=== PATIENT | female | born 1990 | race Two or more races ===

== ENCOUNTER 2021-06-01 10:51 | Outpatient (REF) | payer MEDICAID, SELFPAY | END 2021-06-01 10:52 | disposition home or self-care (01) | LOC: HO.LNP 10:51 | PROVIDERS: PCP Internal Medicine; Referring Provider Family Medicine; Visit Provider Surgery | DX: L05.01 Pilonidal cyst with abscess (principal) | CPT/HCPCS: 10080; 87071; 87205; 99202 ==

== ENCOUNTER → 2021-06-22 09:58 | Outpatient (BNVA) | payer MEDICAID, SELFPAY | PROVIDERS: PCP Internal Medicine; Referring Provider Internal Medicine; Visit Provider Surgery | DX: L05.01 Pilonidal cyst with abscess (principal); Z88.8 Allergy status to other drugs, medicaments and biological substances; Z91.040 Latex allergy status; Z79.899 Other long term (current) drug therapy | CPT/HCPCS: 99212 ==

== ENCOUNTER 2023-06-18 16:24 | Outpatient (REF) | payer MEDICAID, SELFPAY ==
[2023-06-18 17:28] LABS: MANUAL DIFF FLAG NO
[2023-06-18 17:49] LABS: Basophils Percent Auto 0.4 % (0-2); Eosinophils Absolute Auto 0.2 X10*3/uL (0.0-0.4); Eosinophils Percent Auto 1.9 % (0-4); Hematocrit 40.2 % (37.0-47.0); Hemoglobin 13.5 g/dl (12.0-16.0); Imm Gran Abs Auto 0.03 X10*3/uL (0.00-0.03); Imm Gran Pct Auto 0.3 % (0.0-0.4); Lymphocytes Absolute Auto 2.7 X10*3/uL (1.2-4.9); Lymphocytes Percent Auto 27.6 % (20-40); Mean Corpuscular HGB Conc 33.6 g/dl (31.0-35.0); Mean Corpuscular Hemoglobin 29.6 pg (27.0-33.0); Mean Corpuscular Volume 88.2 fL (80.0-98.0); Mean Platelet Volume 10.1 fL (9.4-12.3); Monocytes Absolute Auto 0.5 X10*3/uL (0.1-1.2); Monocytes Percent Auto 5.1 % (2-11); Neutrophils Absolute Auto 6.3 x10*3/uL (2.0-8.3); Neutrophils Percent Auto 64.7 % (45-73); Platelet Count 344 X10*3/uL (160-400); Red Blood Count 4.56 X10*6/uL (4.20-5.50); Red Cell Distribution Width 13.8 % (11.0-16.0); White Blood Count 9.8 X10*3/uL (4.8-10.8)
[2023-06-18 18:17] LABS: Anion Gap 13 (12-20); Blood Urea Nitrogen 10 mg/dL (9-16); Calcium 9.4 mg/dL (8.4-10.2); Carbon Dioxide 29 mmol/L (22-29); Chloride 101 mmol/L (96-108); Estimated Glomerular Filt Rate > 60; Glucose Random 76 mg/dL (60-115); Potassium 3.8 mmol/L (3.3-5.1); Sodium 139 mmol/L (135-145)
[2023-06-18 18:25] LABS: TSH reflex Free T4 2.05 uIU/mL (0.32-4.0)
== END 2023-06-18 16:25 | disposition home or self-care (01) ==
LOC: HO.CHCLDS 16:24
PROVIDERS: Visit Provider Internal Medicine
DX: I10 Essential (primary) hypertension (principal); R00.2 Palpitations
CPT/HCPCS: 36415; 80048; 84443; 85025

== ENCOUNTER 2023-07-15 10:53 | Outpatient (REF) | payer MEDICAID, SELFPAY ==
--- NOTE | ~2023-07-15 | XR_ITS ---
EXAMINATION: XR SHOULDER, RIGHT CLINICAL INFORMATION: Pain. COMPARISON: None available. TECHNIQUE: AP external rotation, Grashey, scapular Y, and axillary views of the right shoulder. FINDINGS: Bony alignment and mineralization are normal. There are incompletely fused preacromial and mesoacromial accessory ossification centers. No fracture or dislocation is seen. Glenohumeral and acromioclavicular alignment is anatomic with normal joint space. No abnormal soft tissue calcifications. XR/XR shoulder RT min 2V IMPRESSION: There are unfused acromial accessory ossification centers. No acute fracture or dislocation is seen.
== END 2023-07-15 10:54 | disposition home or self-care (01) ==
LOC: HO.HOSX 10:53
PROVIDERS: PCP Internal Medicine; Visit Provider Orthopaedic Surgery
DX: M25.511 Pain in right shoulder (principal); M24.811 Other specific joint derangements of right shoulder, not elsewhere classified
CPT/HCPCS: 73030; 99202

== ENCOUNTER 2023-07-15 10:53 | Outpatient (AMB) | payer OTHER, MEDICAID, SELFPAY ==
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
== END 2023-07-15 11:57 | disposition home or self-care (01) ==
LOC: HO.HOS 10:53
PROVIDERS: PCP Internal Medicine; Visit Provider Orthopaedic Surgery
DX: M24.811 Other specific joint derangements of right shoulder, not elsewhere classified (principal)
CPT/HCPCS: 99203

== ENCOUNTER 2023-08-19 12:34 | Outpatient (REF) | payer OTHER, SELFPAY ==
--- NOTE | ~2023-08-19 | FL_ITS ---
RIGHT SHOULDER ARTHROGRAM INDICATIONS: Right shoulder pain. Intra-articular gadolinium injection is needed prior to MRI. PROCEDURE: Risks and benefits and possible complications were discussed with the patient and the consent form was signed. The patient was placed supine on the fluoroscopy table. The right shoulder was prepped and draped in normal sterile fashion. 1% buffered lidocaine was used for anesthesia. A 22-gauge spinal needle was used to access the shoulder joint. Intra-articular position of the needle within the shoulder joint was verified using 3 cc of Omnipaque 300. A total of 10 mL of gadolinium/saline (1:200) contrast mixture was then injected into the shoulder joint. The needle was then removed and a Band-Aid was applied to the injection site. The patient tolerated the procedure well and was sent to MRI. There were no immediate complications. FL/FL arthrogram shoulder RT IMPRESSION: Successful fluoroscopic guided intra-articular instillation of dilute gadolinium into the right shoulder joint. Patient will undergo subsequent right shoulder MRI. The procedure was performed by zayda Shea PA-C, and directly supervised by Dr. Padron.
--- NOTE | ~2023-08-19 | MR_ITS ---
EXAMINATION: MR SHOULDER WITH CONTRAST, RIGHT CLINICAL INFORMATION: Right shoulder pain COMPARISON: Radiographs 07/15/2023 TECHNIQUE: MRI of the shoulder was performed following the intra-articular administration of a dilute gadolinium-containing solution (arthrogram) on a high-field scanner. FINDINGS: ROTATOR CUFF: Intact. No muscle atrophy or fatty infiltration. BICEPS: Normal. CORACOACROMIAL ARCH: The undersurface of the acromion is curved with os acromiale with minimal degenerative change. The acromioclavicular joint is normal. LABRUM/CAPSULE: No evidence of a labral tear. GLENOHUMERAL JOINT/MARROW: No articular cartilage defect or loose body. Bone marrow signal is normal. MR/MR shoulder RT w con IMPRESSION: 1. No rotator cuff tear. 2. Os acromiale with minimal degenerative change.
[2023-08-19] MEDS: gadobutroL 2 ML VIAL IVPUSH (15:34)
== END 2023-08-19 12:35 | disposition home or self-care (01) ==
LOC: HO.XRAY 12:34
PROVIDERS: PCP Internal Medicine; Visit Provider Orthopaedic Surgery
DX: M24.811 Other specific joint derangements of right shoulder, not elsewhere classified (principal)
CPT/HCPCS: 23350; 73040; 73222; A9585

== ENCOUNTER → 2023-08-19 12:54 | Outpatient (BNV) | payer OTHER, SELFPAY | PROVIDERS: PCP Internal Medicine; Visit Provider Physician Assistant Surgical | DX: M24.811 Other specific joint derangements of right shoulder, not elsewhere classified (principal) | CPT/HCPCS: 23350; 73040 ==

== ENCOUNTER 2023-09-12 13:28 | Outpatient (AMB) | payer OTHER, SELFPAY ==
--- NOTE | 2023-09-12 13:30 | MHC.OFFVIS ---
Vital Signs 09/12/23 13:31 Height 5 ft 7 in Intake Visit Reasons: OV - Right Shoulder MRI Review Intake Note: Tammy is a 33 year old female who presents today for an MRI review of her right shoulder. MR/MR shoulder RT w con IMPRESSION: 1. No rotator cuff tear. 2. Os acromiale with minimal degenerative change Allergies ibuprofen [From MOTRIN] Allergy (Unknown, Unverified 09/12/23 13:32) ITCHING latex [LATEX] Allergy (Unknown, Unverified 09/12/23 13:32) ITCHING HPI HPI OV - Right Shoulder MRI Review: Details: Tammy is a 33 year old female who presents today for an MRI review of her right shoulder. She is doing physical therapy and states her shoulder is feeling better. She still is sore after therapy feels improvement. 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 Physical Exam Const General: cooperative, healthy appearing, no acute distress and well groomed Orientation/consciousness: oriented to person and oriented to place HEENT Head: Yes normal to inspection, Yes normocephalic and Yes atraumatic Eyes General: appearance normal, both eyes and all related structures Alignment and Position: alignment normal Conjunctivae: conjunctivae normal EOM: EOMs intact bilaterally Neck Neck: Yes normal visual inspection and Yes trachea midline Resp Other: No rerpiratory distress Effort & Inspection: normal respiratory effort and able to speak in complete sentences Cardio Other: Palpable radial pulse with no appreciable rythmic abnormalities GI Other: No abdominal distension Back/Spine/Pelvis Cervical Spine: normal cervical lordosis and cervical ROM normal Skin General skin exam: no rashes or lesions noted Neuro General: oriented to person, oriented to place and gait normal Extrem Other: Positive Cantrell and Neer 4/5 empty can Negative lift-off No AC joint tenderness Results Reviewed Results Reviewed: I personally reviewed the MR images. MR/MR shoulder RT w con IMPRESSION: 1. No rotator cuff tear. 2. Os acromiale with minimal degenerative change Assessment & Plan Assessment & Plan (1) Painful arc syndrome of right shoulder: Code(s): M75.101 - Unspecified rotator cuff tear or rupture of right shoulder, not specified as traumatic Category: Medical Plan: I recommend to knee should continue physical therapy. I reviewed her MRI and discussed treatment options. At this point no surgical intervention is warranted. Should she not fully improve she can return to see me. Coding Level of Care Code Est Pt Level 3 (81388) Diagnoses Painful arc syndrome of right shoulder M75.101
== END 2023-09-12 14:12 | disposition home or self-care (01) ==
PROVIDERS: PCP Internal Medicine; Visit Provider Orthopaedic Surgery
DX: M75.41 Impingement syndrome of right shoulder (principal)
CPT/HCPCS: 99213

== ENCOUNTER → 2023-09-12 13:28 | Outpatient (BNVA) | payer OTHER, SELFPAY | PROVIDERS: PCP Internal Medicine; Visit Provider Orthopaedic Surgery ==

== ENCOUNTER 2023-10-07 13:45 | Outpatient (AMB) | payer OTHER, SELFPAY ==
--- NOTE | 2023-10-07 14:05 | A.OFFVIS_ITS ---
Vital Signs 10/07/23 14:06 Height 5 ft 7 in Weight 220 lb BMI 34.5 Handedness Right Intake Visit Reasons: OV-Right Shoulder pain inj. Intake Note: Tammy is a 33 year old right hand dominant female who presents today for a follow up of her right shoulder. At her last visit we reviewed her MRI, it was recommended to continue physical therapy. Patient expresses she completed PT with no improvement. Pain radiates down to middle of her bicep. She is unable to lift objects and driving is difficult with her right arms. She is interested in receiving an injection today. Allergies ibuprofen [From MOTRIN] Allergy (Unknown, Verified 10/07/23 14:10) ITCHING latex [LATEX] Allergy (Unknown, Verified 10/07/23 14:10) ITCHING HPI HPI OV-Right Shoulder pain inj.: Details: Tammy is a 33 year old right hand dominant female who presents today for a follow up of her right shoulder. At her last visit we reviewed her MRI, it was recommended to continue physical therapy. Patient expresses she completed PT with no improvement. Pain radiates down to middle of her bicep. She is unable to lift objects and driving is difficult with her right arms. She is interested in receiving an injection today. Shje states she is continuing her exercise program and she has good days and bad days. 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 Physical Exam Vital Signs: BMI result Body Mass Index 34.5 Const General: cooperative, healthy appearing, no acute distress and well groomed Orientation/consciousness: oriented to person and oriented to place HEENT Head: Yes normal to inspection, Yes normocephalic and Yes atraumatic Eyes General: appearance normal, both eyes and all related structures Alignment and Position: alignment normal Conjunctivae: conjunctivae normal EOM: EOMs intact bilaterally Neck Neck: Yes normal visual inspection and Yes trachea midline Resp Other: No rerpiratory distress Effort & Inspection: normal respiratory effort and able to speak in complete sentences Cardio Other: Palpable radial pulse with no appreciable rythmic abnormalities GI Other: No abdominal distension Back/Spine/Pelvis Cervical Spine: normal cervical lordosis and cervical ROM normal Skin General skin exam: no rashes or lesions noted Neuro General: oriented to person, oriented to place and gait normal Extrem Other: Positive Cantrell and Neer 4+/5 empty can Negative lift-off No AC joint tenderness Office Procedures Joint Injection/Drain Joint Injection/Drain Details: Injected 1 mL of Decadron and 3 mL 1% lidocaine and 3 mL of 0.25% Marcaine. Site was prepped using aseptic technique. Patient tolerated the procedure well. Primary Site: right shoulder Approach Used: posterolateral Coding 90353 - Large joint Procedure code (CPT) selection complete Assessment & Plan Assessment & Plan (1) Painful arc syndrome of right shoulder: Code(s): M75.101 - Unspecified rotator cuff tear or rupture of right shoulder, not specified as traumatic Category: Medical Plan: I recommend Tammy should continue her HEP. I continue to recommend conservative management. I injected her shoulder today. She may f/u prn. Coding Level of Care Code Est Pt Level 3 (13577) Diagnoses Painful arc syndrome of right shoulder M75.101 CPT Codes Coding - 04436 Large joint: 50228 - Large joint ([id number])
[2023-10-07 14:06] VITALS: BMI 34.5
== END 2023-10-07 14:24 | disposition home or self-care (01) ==
PROVIDERS: PCP Internal Medicine; Visit Provider Orthopaedic Surgery
DX: M75.101 Unspecified rotator cuff tear or rupture of right shoulder, not specified as traumatic (principal); V49.50XA Passenger injured in collision with unspecified motor vehicles in traffic accident, initial encounter; Z04.3 Encounter for examination and observation following other accident
CPT/HCPCS: 20610; 99213

== ENCOUNTER → 2023-10-07 13:45 | Outpatient (BNVA) | payer OTHER, SELFPAY | PROVIDERS: PCP Internal Medicine; Visit Provider Orthopaedic Surgery | DX: M75.101 Unspecified rotator cuff tear or rupture of right shoulder, not specified as traumatic (principal); M25.511 Pain in right shoulder | CPT/HCPCS: 20610; J0665; J1100 ==

== ENCOUNTER 2023-11-22 09:32 | Outpatient (REF) | payer OTHER, SELFPAY ==
[2023-11-22 16:04] LABS: HIV AB/AG Nonreactive (Nonreactive); HIV Num 1 0.04 S/CO (0.00-0.99); ~HepC Num1 0.14 S/CO (0.00-0.79); ~Hepatitis C Antibody Nonreactive (Nonreactive)
== END 2023-11-22 09:33 | disposition home or self-care (01) ==
LOC: HO.CHCLDS 09:32
PROVIDERS: Visit Provider Internal Medicine
DX: Z11.3 Encounter for screening for infections with a predominantly sexual mode of transmission (principal)
CPT/HCPCS: 36415; 86592; 86803; 87389

== ENCOUNTER 2023-11-26 12:48 | Outpatient (REF) | payer OTHER, SELFPAY ==
[2023-11-26 18:41] LABS: CT PCR NOT DETECTED (Not Detect.); NG PCR NOT DETECTED (Not Detect.)
[2023-11-28 12:24] LABS: RPR Rapid Plasma Reagin NON-REACTIVE (NON-REACTIVE)
== END 2023-11-26 12:49 | disposition home or self-care (01) ==
LOC: HO.CHCLDS 12:48
PROVIDERS: Visit Provider Internal Medicine
DX: Z11.3 Encounter for screening for infections with a predominantly sexual mode of transmission (principal)
CPT/HCPCS: 36415; 86592; 87491; 87591

== ENCOUNTER 2024-07-24 14:01 | Outpatient (REF) | payer OTHER, SELFPAY ==
[2024-07-24 16:19] LABS: Hematocrit 40.2 % (37.0-47.0); Hemoglobin 13.4 g/dl (12.0-16.0); Mean Corpuscular HGB Conc 33.3 g/dl (31.0-35.0); Mean Corpuscular Hemoglobin 29.8 pg (27.0-33.0); Mean Corpuscular Volume 89.5 fL (80.0-98.0); Mean Platelet Volume 10.4 fL (9.4-12.3); Platelet Count 304 X10*3/uL (160-400); Red Blood Count 4.49 X10*6/uL (4.20-5.50); Red Cell Distribution Width 13.3 % (11.0-16.0)
[2024-07-24 16:29] LABS: Estimated Average Glucose 105 mg/dL; Hemoglobin A1C 124.6168 umol/L; Hemoglobin A1c % 5.3 % (<6.0)
[2024-07-25 03:48] LABS: HBS Num1 36.05 mIU/mL (0-7.99); HBc Num1 0.13 S/CO (0.00-0.79); HBsAGNum1 0.29 S/CO (0.00-0.99); HIV AB/AG Nonreactive (Nonreactive); HIV Num 1 0.11 S/CO (0.00-0.99); Hepatitis B Core Antibody Nonreactive (Nonreactive); Hepatitis B Surface Antigen Negative (Negative); ~Hepatitis B Surface Antibody REACTIVE (Nonreactive)
[2024-07-27 19:19] LABS: TS Negative Control Passed; TS Panel A 0; TS Panel B 1; TS Positive Control Passed; TSpotTB Negative (Negative)
== END 2024-07-24 14:02 | disposition home or self-care (01) ==
LOC: HO.HHCL 14:01
PROVIDERS: Visit Provider Nurse Practitioner Family
DX: Z00.00 Encounter for general adult medical examination without abnormal findings (principal); E66.9 Obesity, unspecified
CPT/HCPCS: 36415; 83036; 85027; 86481; 86704; 86706; 87340; 87389

== ENCOUNTER 2024-10-05 | Outpatient (REF) | payer OTHER, SELFPAY ==
[2024-10-08 05:17] LABS: C. trachomatis RNA TMA NOT DETECTED (NOT DETECTED); N. gonorrhoeae RNA TMA NOT DETECTED (NOT DETECTED); Trichomonas (NAAT) NOT DETECTED (NOT DETECTED)
[2024-10-09 11:14] LABS: HPV Genotype 16 Negative (Negative); HPV Genotype 18 Negative (Negative); HPV High Risk Negative (Negative)
--- OUTSIDE RECORDS SUMMARY | 2024-11-24 09:04 | XMS_ITS | Clinical Summary ---
Author Organization [facility] ity Address [address] [place] [address] Care Team Providers Care Prospecting Driller Name Role Phone Unavailable Primary Care Provider Unavailabl e Social History Tobacco Use Types Packs/Day Years Used Date Smoking Tobacco: Never Assessed Comments Unknown Sex and Gender Information Value Date Recorded Sex Assigned at Not on file Legal Sex Female 9:59 AM EST Gender Identity Not on file Sexual Orientation Not on file Plan of Treatment Health Maintenance Due Date Last Done Comments DTaP,Tdap,and Td Vaccines (1 - Tdap) 02/04/2011 Hepatitis B Vaccines (1 of 3 - 19+ 3-dose series) 02/04/2011 Cervical Cancer Screening: P ap Smear 02/04/2013 HIV Screening 12/23/2023 Hepatitis C Screening 12/23/2023 Social Influencers of Health Screening 12/23/2023 COVID-19 Vaccine (1 - 2023-2 5 season) 2023 Depression Screening 04/29/2024 Influenza Vaccine (#1) 2024 HIB Vaccines Aged Out No longer eligi ble based on patient's age to complete this topic HPV Vaccines Aged Out No longer eligi ble based on patient's age to complete this topic Hepatitis A Vaccines Aged Out No long er eligible based on patient's age to complete this topic IPV Vaccines Aged Out No longer eligi ble based on patient's age to complete this topic MMR Vaccines Aged Out No longer eligi ble based on patient's age to complete this topic Meningococcal ACWY Vaccine Aged Out N o longer eligible based on patient's age to complete this topic Meningococcal B Vaccine Aged Out No l onger eligible based on patient's age to complete this topic Pneumococcal Vaccine: Pediat rics (0 to 5 Years) and At-Risk Patients (6 to 49 Years) Aged Out No longer eligible b ased on patient's age to complete this topic RSV Immunization Patients Un ana 20 months Aged Out No longer eligible b ased on patient's age to complete this topic Varicella Vaccines Aged Out No longer eligible based on patient's age to complete this topic
--- OUTSIDE RECORDS SUMMARY | 2024-11-24 09:04 | XMS_ITS | Encounter Summary ---
Author Organization [employer] Address [address] [facility] 7 [place] [address] Care Team Providers Care Overhead Garage Door Hanger Name Role Phone Abdirahman Mccord MD Unavailable [phone] Abdirahman Mccord MD Primary Care Provider [phone] Encounter Details Date Type Department Care Team ([facility] st Contact Info) Description 08/19/2023 Orders Only [facility] MED & PEDS [address] [place], [place] [phone] Abdirahman Mccord MD [address] [place], [place] [phone] Severe obesity (CMS/HCC) Social History Tobacco Use [...] Upcoming Encounters Date Type Department Care Team (Late st Contact Info) Description 11/25/2024 2:20 PM EDT Office Visit [facility] MED & PEDS [address] [place] [address] documented as of this encounter Procedures Procedure [...] PM EDT Narrative 08/22/2023 10:03 AM EDT [address] [address] Magnetic Resonance Report Signed Patient: Tammy Scott MR#: [id number] 1003 : 1990 Acct:[id number] Age/Sex: 33 / F ADM Date: 08/19/23 Loc: [facility] Attending Dr: Dimitry Omalley MD Ordering Physician: Elaine Cox PA-C Date of Service: 08/19/23 Procedure(s): MR shoulder RT w con Accession Number(s): [id number] cc: Abdirahman Mccord MD; Elaine Cox PA-C EXAMINATION: MR SHOULDER WITH CONTRAST, [...] By: <Electronically signed by Fidel Mortensen MD in OV> 08/22/23 0959 DD/ 1431 TD/TT: Cylinder Machine Operator: PHILL Procedure Note Donotuseinterpreter, Image - 08/22/2023 [place] [address] Magnetic Resonance Report Signed Patient: Tammy Scott AMR#: [id number] : 1990Acct:[id number] Age/Sex: 33 / FADM Date: 08/19/23 Loc: ANNIA Attending Dr: Dimitry Omalley MD Ordering Physician: Elaine Cox PA-C Date of Service: 08/19/23 Procedure(s): MR shoulder RT w con Accession Number(s): [id number] cc: Abdirahman Mccord MD; Elaine Cox PA-C EXAMINATION: MR SHOULDER WITH CONTRAST, [...] MD inOV> 08/22/23 0959 DD/ 1431 TD/TT: Cylinder Machine Operator: PHILL [facility] External Provider IMG MRI PROCEDURES Final Result * FL ARTHROGRAM SHOULDER RIGHT (08/19/2023 1:25 PM EDT) Anatomical Region Laterality Modality Radiographic Kimberly ging 08/19/2023 1:25 PM EDT Narrative 08/20/2023 8:34 AM EDT [place] [address] Fluoroscopy Report Signed Patient: Tammy Scott MR#: [id number] : 1990 Acct:[id number] Age/Sex: 33 / F ADM Date: 08/19/23 Loc: .XRAY Attending Dr: Dimitry Omalley MD Ordering Physician: Dimitry Omalley MD Date of Service: 08/19/23 Procedure(s): FL arthrogram shoulder RT Accession Number(s): [id number] cc: Abdirahman Mccord MD; Dimitry Omalley MD [...] in OV> 08/20/23 0833 DD/ 1325 TD/TT: Cylinder Machine Operator: Procedure Note Donotuseinterpreter, Image - 08/20/2023 [place] [address] Fluoroscopy Report Signed Patient: Tammy Scott [facility]#: [id number] 1003 : 1990Acct:[id number] Age/Sex: 33 / FADM Date: 08/19/23 Loc: HO.XRAY Attending Dr: Dimitry Omalley MD Ordering Physician: Dimitry Omalley MD Date of Service: 08/19/23 Procedure(s): FL arthrogram shoulder RT Accession Number(s): [id number] cc: Abdirahman Mccord MD; Dimitry Omalley MD [...] in OV> 08/20/23 0833 DD/ 1325 TD/TT: Cylinder Machine Operator: [facility] External Provider IMG FLU OROSCOPY PROCEDURES Final Result documented in this encounter Visit Diagnoses Diagnosis Severe obesity (CMS/HCC) Morbid obesity documented in this encounter Additional Health Concerns Assessment Noted Time PHQ-9 Depression Total Score: 10 11/12/ 023 11:07 AM EDT documented as of this encounter Care Teams Overhead Garage Door Hanger Relationship Specialty Start Date End Date Abdirahman Mccord MD [address] [place] [address] PCP - General Internal Medicine 12/10/22 Abdirahman Mccord MD [address] [place] [address] Internal Medicine 04/29/21 documented as of this encounter
== END 2024-10-05 00:01 | disposition home or self-care (01) ==
LOC: HO.HHCLNP
PROVIDERS: Visit Provider Advanced Practice Midwife
DX: Z13.89 Encounter for screening for other disorder (principal)
CPT/HCPCS: 87491; 87591; 87626; 87661; 88175

== ENCOUNTER 2024-10-05 16:10 | Outpatient (REF) | payer OTHER, SELFPAY ==
--- OUTSIDE RECORDS SUMMARY | 2024-10-05 17:39 | XMS_ITS | Encounter Summary ---
Author Organization [employer] Address [address] [facility] [place] [address] Care Team Providers Care Pmo Business Analyst Name Role Phone Abdirahman Mccord MD Unavailable [phone] Abdirahman Mccord MD Primary Care Provider [phone] Encounter Details Date Type Department Care Team ([facility] st Contact Info) Description 08/19/2023 Orders Only [facility] [address], [place] [phone] Abdirahman Mccord MD [address], [place] [phone] Severe obesity (CMS/HCC) Social History Tobacco Use Types Packs/Day Years Used Date Smoking Tobacco: Never Passive Smoke Exposure: Never Smokeless Tobacco: Never Depression Answer Date Recorded Patient Health Questionnaire-9 Score 10 11/12/2022 Housing Stability Answer Date Recorded What is your housing situation today? I have marilyn ordoñez 02/25/[address] you li ve. Do you have problems with any of the following? None of the above 02/25/2023 Food Insecurity Answer Date Recorded Within the past 12 months, y ou worried that your food would run out before you got money to buy more: Never True 02/25/2023 Within the past 12 months,th e food you bought just didn't last and you didn't have enough money to get more: Never True Transportation Answer Date Recorded In the past 12 months, has l ack of transportation kept you from medical appts, meetings, work or from getting things needed for daily living? No 02/25/2023 Utilities Answer Date Recorded In the past 12 months, has t he electric, gas, oil or water company threatened to shut off services in your home? No 02/25/2023 Depression Answer Date Recorded Patient Health Questionnaire-2 Score 1 11/12/2022 Comments Unknown Sex and Gender Information Value Date Recorded Sex Assigned at Female 02/26/2022 10:30 AM EDT Legal Sex Female 10:30 AM EDT Gender Identity Female 02/26/2022 10:30 AM EDT Sexual Orientation Choose not to disclose 2021 10:30 AM EDT documented as of this encounter Plan of Treatment Upcoming Encounters Date Type Department Care Team ([facility] st Contact Info) Description 11/19/2024 1:00 PM EDT Office Visit [facility] [address] [place] [address] Abdirahman Mccord MD [address] [place] [address] documented as of this encounter Procedures Procedure Name Priority Date/Time Associated Diagnosis Comments MR SHOULDER W CONTRAST RIGHT Routine 08/19/2023 2:31 PM EDT FL ARTHROGRAM SHOULDER RIGHT Routine 08/19/2023 1:25 PM EDT documented in this encounter Results * MR Shoulder w/ Contrast Right (08/19/2023 2:31 PM EDT) Anatomical Region Laterality Modality Upper Extremities, Shoulder Right Magn etic Resonance 08/19/2023 2:31 PM EDT Narrative 08/22/2023 10:03 AM EDT ? [facility] ?[address] ?[place] [address] ? Magnetic Resonance Report ? Signed ? Patient: ScottTammy tobias A ?MR#: [id number] ?? 1003 ? : 1990 ?Acct:[id number] ? Age/Sex: 33 / F ?ADM Date: 04/22/24 ? Loc: HO.XRAY ? Attending Dr: Dimitry Omalley MD ? Ordering Physician: Elaine Cox PA-C ?? Date of Service: 08/19/23 ?? Procedure(s): MR shoulder RT w con ?? Accession Number(s): [id number] ? cc: Abdirahman Mccord MD; Elaine Cox PA-C ? EXAMINATION: ?? MR SHOULDER WITH CONTRAST, RIGHT ? CLINICAL INFORMATION: ?? Right shoulder pain ? COMPARISON: ?? Radiographs 07/15/2023 ? TECHNIQUE: ?? MRI of the shoulder was performed following the intra-articular ?? administration of a dilute gadolinium-containing solution (arthrogram) ?? on a high-field scanner. ? FINDINGS: ?? ROTATOR CUFF: Intact. No muscle atrophy or fatty infiltration. ? BICEPS: Normal. ? CORACOACROMIAL ARCH: The undersurface of the acromion is curved with os ?? acromiale with minimal degenerative change. The acromioclavicular joint ?? is normal. ? LABRUM/CAPSULE: No evidence of a labral tear. ? GLENOHUMERAL JOINT/MARROW: No articular cartilage defect or loose body. ?? Bone marrow signal is normal. ? MR/MR shoulder RT w con ?? IMPRESSION: ?? 1. ??No rotator cuff tear. ?? 2. ??Os acromiale with minimal degenerative change. ? Dictated By: ?Fidel Mortensen MD ? Signed By: ?<Electronically signed by Fidel Mortensen MD in OV> ? 08/22/23 0959 ? DD/ 1431 ? TD/TT: ? Tube Pusher: DM ? Procedure Note Diallo Rahman - 08/22/[address] [address] Magnetic Resonance Report Signed Patient: Tammy Scott [facility]#: [id number] 1003 : 1990Acct:[id number] Age/Sex: 33 / FADM Date: 08/19/23 Loc: [facility] Attending Dr: Dimitry Omalley MD Ordering Physician: Elaine Cox PA-C Date of Service: 08/19/23 Procedure(s): MR shoulder RT w con Accession Number(s): [id number] cc: Abdirahman Mccord MD; Ealine Cox PA-C EXAMINATION: MR SHOULDER WITH CONTRAST, RIGHT CLINICAL INFORMATION: Right shoulder pain COMPARISON: Radiographs 07/15/2023 TECHNIQUE: MRI of the shoulder was performed following the intra-articular administration of a dilute gadolinium-containing solution (arthrogram) on a high-field scanner. FINDINGS: ROTATOR CUFF: Intact. No muscle atrophy or fatty infiltration. BICEPS: Normal. CORACOACROMIAL ARCH: The undersurface of the acromion is curved with os acromiale with minimal degenerative change. The acromioclavicular joint is normal. LABRUM/CAPSULE: No evidence of a labral tear. GLENOHUMERAL JOINT/MARROW: No articular cartilage defect or loose body. Bone marrow signal is normal. MR/MR shoulder RT w con IMPRESSION: 1. No rotator cuff tear. 2. Os acromiale with minimal degenerative change. Dictated By: Fidel Mortensen MD Signed By: <Electronically signed by Fidel Mortensen MD inOV> 08/22/23 0959 DD/ 1431 TD/TT: Tube Pusher: PHILL [facility] External Provider IMG MRI PROCEDURES Final Result * FL ARTHROGRAM SHOULDER RIGHT (08/19/2023 1:25 PM EDT) Anatomical Region Laterality Modality Radiographic Kimberly ging 08/19/2023 1:25 PM EDT Narrative 08/20/2023 8:34 AM EDT ? [facility] ?[address] ?[place] [address] ? Fluoroscopy Report ? Signed ? Patient: Tammy Scott ?MR#: [id number] ?? 1003 ? : 1990 ?Acct:[id number] ? Age/Sex: 33 / F ?ADM Date: 04/22/24 ? Loc: HO.XRAY ? Attending Dr: Dimitry Omalley MD ? Ordering Physician: Dimitry Omalley MD ?? Date of Service: 08/19/23 ?? Procedure(s): FL arthrogram shoulder RT ?? Accession Number(s): [id number] ? cc: Abdirahman Mccord MD; Dimitry Omalley MD ? RIGHT SHOULDER ARTHROGRAM ? INDICATIONS: Right shoulder pain. Intra-articular gadolinium injection ?? is needed prior to MRI. ? PROCEDURE: Risks and benefits and possible complications were discussed ?? with the patient and the consent form was signed. The patient was ?? placed supine on the fluoroscopy table. The right shoulder was prepped ?? and draped in normal sterile fashion. 1% buffered lidocaine was used ?? for anesthesia. A 22-gauge spinal needle was used to access the ?? shoulder joint. Intra-articular position of the needle within the ?? shoulder joint was verified using 3 cc of Omnipaque 300. A total of 10 ?? mL of gadolinium/saline (1:200) contrast mixture was then injected into ?? the shoulder joint. The needle was then removed and a Band-Aid was ?? applied to the injection site. The patient tolerated the procedure well ?? and was sent to MRI. There were no immediate complications. ? FL/FL arthrogram shoulder RT ?? IMPRESSION: Successful fluoroscopic guided intra-articular instillation ?? of dilute gadolinium into the right shoulder joint. Patient will ?? undergo subsequent right shoulder MRI. ? The procedure was performed by shoulder Hugo Shea PA-C, and directly ?? supervised by Dr. Padron. ? Dictated By: ?Hugo Shea ? Signed By: ?<Electronically signed by Hugo Shea in OV> ? 08/20/23 0830 ?<Electronically signed by Topher Padron MD in OV> ? 08/20/23 0833 ? DD/ 1325 ? TD/TT: ? Tube Pusher: ? Procedure Note Diallo Rahman - 08/20/[address] [address] Fluoroscopy Report Signed Patient: Tammy Scott [facility]#: [id number] 1003 : 1990Acct:[id number] Age/Sex: 33 / FADM Date: 08/19/23 Loc: [facility] Attending Dr: Dimitry Omalley MD Ordering Physician: Dimitry Omalley MD Date of Service: 08/19/23 Procedure(s): FL arthrogram shoulder RT Accession Number(s): [id number] cc: Abdirahman Mccord MD; Dimitry Omalley MD RIGHT SHOULDER ARTHROGRAM INDICATIONS: Right shoulder pain. Intra-articular gadolinium injection is needed prior to MRI. PROCEDURE: Risks and benefits and possible complications were discussed with the patient and the consent form was signed. The patient was placed supine on the fluoroscopy table. The right shoulder was prepped and draped in normal sterile fashion. 1% buffered lidocaine was used for anesthesia. A 22-gauge spinal needle was used to access the shoulder joint. Intra-articular position of the needle within the shoulder joint was verified using 3 cc of Omnipaque 300. A total of 10 mL of gadolinium/saline (1:200) contrast mixture was then injected into the shoulder joint. The needle was then removed and a Band-Aid was applied to the injection site. The patient tolerated the procedure well and was sent to MRI. There were no immediate complications. FL/FL arthrogram shoulder RT IMPRESSION: Successful fluoroscopic guided intra-articular instillation of dilute gadolinium into the right shoulder joint. Patient will undergo subsequent right shoulder MRI. The procedure was performed by shoulder Hugo Shea PA-C, and directly supervised by Dr. Padron. Dictated By: Hugo Shea Signed By: <Electronically signed by Hugo Shea in OV> 08/20/23 0830 <Electronically signed by Topher Padron MD in OV> 08/20/23 0833 DD/ 1325 TD/TT: Tube Pusher: [facility] External Provider IMG FLU OROSCOPY PROCEDURES Final Result documented in this encounter Visit Diagnoses Diagnosis Severe obesity (CMS/HCC) Morbid obesity documented in this encounter Additional Health Concerns Assessment Noted Time PHQ-9 Depression Total Score: 10 023 11:07 AM EDT documented as of this encounter Care Teams Pmo Business Analyst Relationship Specialty Start Date End Date Abdirahman Mccord MD [address] [facility] [place] [address] PCP - General Internal Medicine 12/10/22 Abdirahman Mccord MD [address] [facility] [place] [address] Internal Medicine 04/29/21 documented as of this encounter
== END 2024-10-05 16:11 | disposition home or self-care (01) ==
LOC: HO.HHCLNP 16:10
PROVIDERS: Visit Provider Advanced Practice Midwife
DX: Z12.4 Encounter for screening for malignant neoplasm of cervix (principal); Z11.3 Encounter for screening for infections with a predominantly sexual mode of transmission
CPT/HCPCS: 87491; 87591; 87626; 87661; 88175

== ENCOUNTER 2024-12-24 15:59 | Outpatient (REF) | payer OTHER, SELFPAY ==
--- OUTSIDE RECORDS SUMMARY | 2024-12-24 14:30 | XMS_ITS | Encounter Summary ---
Author Organization [employer] Address [address] [facility] 7t [place] [address] Care Team Providers Care Runner Worker Name Role Phone Abdirahman Mccord MD Unavailable [phone] Abdirahman Mccord MD Primary Care Provider [phone] Encounter Details Date Type Department Care Team (Late st Contact Info) Description 12/24/2024 2:30 PM EDT Office Visit [facility] MED & PEDS [address] [place], [place] [phone] Mary Purdy MD [address] [place], [place] [phone] Sore throat and laryngitis (Primary Dx) Social History Tobacco Use Types Packs/Day Years Used Date Smoking Tobacco: Never Passive Smoke Exposure: Never Smokeless Tobacco: Never Depression Answer Date Recorded Patient Health Questionnaire-9 Score 3 10/08/2024 Patient Health Questionnaire-9 Score 3 10/08/2024 Last PHQ-9: Questionnaire Data Not on file 0 10/08/2024 Housing Stability Answer Date Recorded What is your housing situation today? I have marilyn smita 07/22/[address] you li ve. Do you have problems with any of the following? None of the above 07/22/2024 Food Insecurity Answer Date Recorded Within the past 12 months, y ou worried that your food would run out before you got money to buy more: Never True 07/22/2024 Within the past 12 months,th e food you bought just didn't last and you didn't have enough money to get more: Never True Transportation Answer Date Recorded In the past 12 months, has l ack of transportation kept you from medical appts, meetings, work or from getting things needed for daily living? No 07/22/2024 Utilities Answer Date Recorded In the past 12 months, has t he electric, gas, oil or water company threatened to shut off services in your home? No 07/22/2024 Depression Answer Date Recorded Patient Health Questionnaire-2 Score 0 10/08/2024 Internet Access Answer Date Recorded Internet Access Q1 Yes 07/22/2024 Internet Access Q2 Not on file 07/22/2024 Comments Unknown Sex and Gender Information Value Date Recorded Sex Assigned at Female 02/26/2022 10:30 AM EDT Legal Sex Female 10:30 AM EDT Gender Identity Female 02/26/2022 10:30 AM EDT Sexual Orientation Choose not to disclose 2021 10:30 AM EDT documented as of this encounter Last Filed Vital Signs Vital Sign Reading Time Taken Comments Blood Pressure 148/82 12/24/2024 2:35 PM EDT Pulse 84 12/24/2024 2:35 PM EDT Temperature 36.4 C (97.6 F) 12/24/2024 2:35 PM EDT Respiratory Rate 20 12/24/2024 2:35 PM EDT Oxygen Saturation 98% 12/24/2024 2:35 PM EDT Inhaled Oxygen Concentration - - Weight 105 kg (232 lb 6.4 oz) 12/24/2024 2:35 PM EDT Height 170.2 cm (5' 7 ) 12/24/2024 2:35 PM EDT Body Mass Index 36.4 12/24/2024 2:35 PM EDT documented in this encounter Progress Notes * Mary Purdy MD - 12/24/2024 2:30 PM EDT Images from the original note were not included. Subjective Patient ID: Tammy Scott is a 34 y.o. female who presents for No chief complaint on file.. Tammy Scott presents with sore throat and earaches that started on Saturday. The symptoms were initially mild but progressed rapidly over the past two days. The patient reports that her symptoms began on Saturday with mild discomfort. By Saturday, she experienced a full-blown swollen throat that made it difficult to eat or drink. Today, the patient describes her condition as being the worst person in the world, indicating severe discomfort. She reports significant pain in her throat and ears. The patient denies any ringing in her ears, fever, conf usion, cough, or runny nose. No sick contacts. The patient also denies any shortness of breath or belly pain. The severe throat pain and difficulty swallowing are significantly impacting her ability to eat and drink. Review of Systems General: Positive for fever. HEENT: Positive for sore throat, earache. Negative for ringing in ears. Respiratory: Negative for shortness of breath. Gastrointestinal: Negative for abdominal pain. Review of Systems Objective Vitals: 12/24/24 1435 BP: (!) 148/82 Pulse: 84 Resp: 20 Temp: 97.6 ??F (36.4 ??C) SpO2: 98% Physical Exam Constitutional: General: She is not in acute distress. Appearance: She is obese. She is not ill-appearing. HENT: Head: Normocephalic and atraumatic. Right Ear: There is no impacted cerumen. Left Ear: Tympanic membrane, ear canal and external ear normal. There is no impacted cerumen. Nose: No congestion. Mouth/Throat: Pharynx: Pharyngeal swelling and posterior oropharyngeal erythema present. Comments: R>L tonsillar swelling, exudates. Pulmonary: Effort: Pulmonary effort is normal. No respiratory distress. Breath sounds: Normal breath sounds. Musculoskeletal: Cervical back: Normal range of motion. Neurological: General: No focal deficit present. Mental Status: She is alert. Psychiatric: Mood and Affect: Mood normal. Assessment/Plan Diagnosis Plan 1. Sore throat and laryngitis Culture, Throat Tammy Scott presents with severe sore throat and earaches that started Saturday, progressively worsening over the past few days. Acute pharyngitis with suspected streptococcal infection Assessment: Patient presents with severe sore throat that began Saturday, initially mild but rapidlyprogressing to severe pain, difficulty swallowing, and inability to eat or drink. Examination reveals significant pharyngeal erythema and exudates, particularly on the right side where the throat is completely white. There is concern for potential peritonsillar abscess due to the severity of symptoms , though no induration is noted at this time and bilateral presemtation. Given the rapid onset,severity of symptoms, and presence of contacts with similar illness, streptococcal pharyngitis is strongly suspected. Plan: - Prescribe liquid Augmentin (amoxicillin/clavulanic acid) 250 mg/62.5 mg per 5 mL suspension - Dosage: 10 mL three times daily - Patient informed of potential difficulty swallowing due to severe infection - Provide work excuse note through Saturday - Patient education: - Expect improvement within 48 hours of starting antibiotics - Return for follow-up if no improvement in 48 hours - Seek immediate medical attention if unable to swallow saliva or if fever worsens - Monitor for signs of peritonsillar abscess (worsening unilateral swelling, inability to swallow) - Follow-up appointment to be scheduled if symptoms do not improve documented in this encounter Plan of Treatment Scheduled Orders Name Type Priority Associated Diagnoses Orde r Schedule Culture, Throat Microbiology Routine Sore throat and laryngitis Ordered: 12/24/2024 documented as of this encounter Visit Diagnoses Diagnosis Sore throat and laryngitis- Primary Acute laryngopharyngitis documented in this encounter Additional Health Concerns Assessment Noted Time PHQ-9 Depression Total Score: 3 10/09/19 25 4:11 PM EDT documented as of this encounter Care Teams Runner Worker Relationship Specialty Start Date End Date Abdirahman Mccord MD [address] [place] [address] PCP - General Internal Medicine 12/10/22 Abdirahman Mccord MD [address] [place] [address] Internal Medicine 04/29/21 documented as of this encounter
--- OUTSIDE RECORDS SUMMARY | 2024-12-24 16:18 | XMS_ITS | Encounter Summary ---
Author Organization [employer] Address [address] [address] Care Team Providers Care Civil Structural Engineer Name Role Phone Abdirahman Mccord MD Unavailable [phone] Abdirahman Mccord MD Primary Care Provider [phone] Reason for Referral * Medications - Closed Specialty Diagnoses / Procedures Referred By Contvasu t Referred To Contact Abdirahman Mccord MD [address] [place] [address] Phone: tel: fax: Referral ID Status Reason Start Date Expiration Date Visits Re quested Visits Authorized [id number] Closed 1 1 Encounter Details Date Type Department Care Team ([facility] st Contact Info) Description 10/14/2024 Orders Only [facility] MED & PEDS [address] [place] [address] Abdirahman Mccord MD [address] [place] [address] Social History Tobacco Use Types Packs/Day Years Used Date Smoking Tobacco: Never Passive Smoke Exposure: Never Smokeless Tobacco: Never Depression Answer Date Recorded Patient Health Questionnaire-9 Score 3 10/08/2024 Patient Health Questionnaire-9 Score 3 10/08/2024 Last PHQ-9: Questionnaire Data Not on file 0 10/08/2024 Housing Stability Answer Date Recorded What is your housing situation today? I have marilyn sing 07/22/[address] you li [...] as of this encounter Plan of Treatment Not on file documented as of this encounter Visit Diagnoses Not on filedocumented in this encounter Additional Health Concerns Assessment Noted Time PHQ-9 Depression Total Score: 3 10/09/19 25 4:11 PM EDT documented as of this encounter Care Teams Civil Structural Engineer Relationship Specialty Start Date End Date Abdirahman Mccord MD [address] [place] [address] PCP - General Internal Medicine 12/10/22 Abdirahman Mccord MD [address] [place] [address] Internal Medicine 04/29/21 documented as of this encounter
--- OUTSIDE RECORDS SUMMARY | 2024-12-24 16:18 | XMS_ITS | Encounter Summary ---
Author Organization [employer] Address [address] [facility] [address] [address] Care Team Providers Care Spring Clipper Name Role Phone Abdirahman Mccord MD Unavailable [phone] Abdirahman Mccord MD Primary Care Provider [phone] Reason for Visit * Reason Onset Date Comments Med Refill 10/14/2024 Encounter Details Date Type Department Care Team (Late st Contact Info) Description 10/14/2024 Telephone [facility] MED & PEDS [address] [place], [place] [phone] Abdirahman Mccord MD [address] [place], [place] [phone] Med Refill Social History Tobacco Use Types Packs/Day Years Used Date Smoking Tobacco: Never Passive Smoke Exposure: Never Smokeless Tobacco: Never Depression Answer Date Recorded Patient Health Questionnaire-9 Score 3 10/08/2024 Patient Health Questionnaire-9 Score 3 10/08/2024 Last PHQ-9: Questionnaire Data Not on file 0 10/08/2024 Housing Stability Answer Date Recorded What is your housing situation today? I have marilyn ordoñez 07/22/[address] you li [...] AM EDT documented as of this encounter Miscellaneous Notes * Telephone Encounter - Delfina Sung RN - 10/19/2024 2:42 PM EDT TC to [facility], no PA needed. TC to pt to let her know. Pt verbalized understanding and agreement with the plan of care. * Telephone Encounter - Natacha Carpio LPN - 10/14/2024 1:45 PM EDT Unclear if needs next dose.Please review * Telephone Encounter - Morelia Conti - 10/14/2024 1:27 PM EDT TC from pt requesting medication refill. Medications needing refill : Tirzepatide-Weight Management (Zepbound) 2.5 MG/0.5ML solution auto-injector To be sent to: [facility]/pharmacy #[id number] - [id number], [place] [address] [facility] [address], [place] [address] documented in this encounter Plan of Treatment Not on file documented as of this encounter Visit Diagnoses Diagnosis Severe obesity (CMS/HCC) Morbid obesity documented in this encounter Additional Health Concerns Assessment Noted Time PHQ-9 Depression Total Score: 3 10/09/19 25 4:11 PM EDT documented as of this encounter Care Teams Spring Clipper Relationship Specialty Start Date End Date Abdirahman Mccord MD [address] [place] [address] PCP - General Internal Medicine 12/10/22 Abdirahman Mccord MD [address] [place] [address] Internal Medicine 04/29/21 documented as of this encounter
--- OUTSIDE RECORDS SUMMARY | 2024-12-24 16:18 | XMS_ITS | Encounter Summary ---
Author Organization [employer] Address 75 [facility] 7t [place] [address] Care Team Providers Care Yard Goods Salesperson Name Role Phone Abdirahman Mccord MD Unavailable [phone] Abdirahman Mccord MD Primary Care Provider [phone] Encounter Details Date Type Department Care Team (Latest Contact Info) Description 12/24/2024 Travel Social History Tobacco Use Types Packs/Day Years [...] documented as of this encounter Care Teams Yard Goods Salesperson Relationship Specialty Start Date End Date Abdirahman Mccord MD [address] [place] [address] PCP - General Internal Medicine 12/10/22 Abdirahman Mccord MD [address] [place] [address] Internal Medicine 04/29/21 documented as of this encounter
--- OUTSIDE RECORDS SUMMARY | 2024-12-24 16:18 | XMS_ITS | Encounter Summary ---
Author Organization [employer] Address 75 [facility] [address] [place] [address] Care Team Providers Care Telegraph Inspector Name Role Phone Abdirahman Mccord MD Unavailable [phone] Abdirahman Mccord MD Primary Care Provider [phone] Reason for Visit * Reason Onset Date Comments Medication Question 12/24/2024 Encounter Details Date Type Department Care Team ([facility] st Contact Info) Description 12/24/2024 Telephone [facility] CH[facility] MED & PEDS [address] [place], [place] [phone] Mary Purdy MD [address] [place], [place] [phone] Medication Question Social History Tobacco Use Types Packs/Day Years [...] Telephone Encounter - Delfina Sung RN - 12/24/2024 3:15 PM EDT CANDI from [facility] pharmacy to verify if 10 days of abx is enough. RN verified with MD Purdy. CANDI Toussaint to relay message. Pavithra verbalized understanding and agreement with the plan of care. documented in this encounter Plan of Treatment Not on file documented as of this encounter Visit Diagnoses Not on filedocumented in this encounter Additional Health Concerns Assessment Noted Time PHQ-9 Depression Total Score: 3 10/09/19 25 4:11 PM EDT documented as of this encounter Care Teams Telegraph Inspector Relationship Specialty Start Date End Date Abdirahman Mccord MD [address] [place] [address] PCP - General Internal Medicine 12/10/22 Abdirahman Mccord MD [address] [place] [address] Internal Medicine 04/29/21 documented as of this encounter
--- OUTSIDE RECORDS SUMMARY | 2024-12-24 16:18 | XMS_ITS | Encounter Summary ---
Author Organization [employer] Address [address] [facility] [address], [place] [address] Care Team Providers Care Office Helper Name Role Phone Abdirahman Mccord MD Unavailable [phone] Abdirahman Mccord MD Primary Care Provider [phone] Reason for Visit * Reason Onset Date Comments Med Refill 11/17/2024 Encounter Details Date Type Department Care Team (Late st Contact Info) Description 11/17/2024 Telephone [facility] MED & PEDS [address] [place], [place] [phone] Abdirahman Mccord MD [address] [place], [place] [phone] Med Refill Social History Tobacco Use Types [...] encounter Miscellaneous Notes * Telephone Encounter - Mague Baum LPN - 11/17/2024 9:24 AM EDT Medication was sent to [facility] #[id number] on 10/16/24 with 1 refill. * Telephone Encounter - Morelia Conti - 11/17/2024 9:12 AM EDT TC from pt requesting medication refill. Medications needing refill : Tirzepatide-Weight Management (Zepbound) 5 MG/0.5ML solution To be sent to: [facility]/pharmacy #[id number] - [place] - [address] [place] [address] [address], [address] [facility] [address] documented in this encounter Plan of Treatment Not on file documented as of this encounter Visit Diagnoses Not on filedocumented in this encounter Additional Health Concerns Assessment Noted Time PHQ-9 Depression Total Score: 3 10/09/19 25 4:11 PM EDT documented as of this encounter Care Teams Office Helper Relationship Specialty Start Date End Date Abdirahman Mccord MD [address] [place] [address] PCP - General Internal Medicine 12/10/22 Abdirahman Mccord MD [address] [facility] [place] [address] Internal Medicine 04/29/21 documented as of this encounter
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
--- OUTSIDE RECORDS SUMMARY | 2024-12-24 16:18 | XMS_ITS | Encounter Summary ---
Author Organization [employer] Address [address] [facility] 7 [place] [address] Care Team Providers Care Enrollment Services Dean Name Role Phone Abdirahman Mccord MD Unavailable [phone] Abdirahman Mccord MD Primary Care Provider [phone] Encounter Details Date Type Department Care Team ([facility] st Contact Info) Description 05/09/2023 Orders Only [facility] [address] [place], [place] [phone] Abdirahman Mccord MD [address] [place], [place] [phone] Primary hypertension (Primary Dx) Social History Tobacco Use Types [...] as of this encounter Visit Diagnoses Diagnosis Primary hypertension- Primary Unspecified essential hypertension documented in this encounter Additional Health Concerns Assessment Noted Time PHQ-9 Depression Total Score: 10 023 11:07 AM EDT documented as of this encounter Care Teams Enrollment Services Dean Relationship Specialty Start Date End Date Abdirahman Mccord MD [address] [place] [address] PCP - General Internal Medicine 12/10/22 Abdirahman Mccord MD [address] [place] [address] Internal Medicine 04/29/21 documented as of this encounter
--- OUTSIDE RECORDS SUMMARY | 2024-12-24 16:18 | XMS_ITS | Encounter Summary ---
Author Organization [employer] Address [address] [facility] 7 [place] [address] Care Team Providers Care Nurses' Association Executive Director Name Role Phone Abdirahman Mccord MD Unavailable [phone] Abdirahman Mccord MD Primary Care Provider [phone] Encounter Details Date Type Department Care Team ([facility] st Contact Info) Description 08/19/2023 Orders Only [facility] [address], [place] [phone] Abdirahman Mccord MD [address] [place], [place] [phone] Severe obesity (CMS/HCC) Social History Tobacco Use [...] on file documented as of this encounter Procedures Procedure [...] PM EDT Narrative 08/22/2023 10:03 AM EDT [place] [address] Magnetic Resonance Report Signed Patient: Tammy Scott MR#: [id number] 1003 : 1990 Acct:[id number] Age/Sex: 33 / F ADM Date: 08/19/23 Loc: HO.XRAY Attending Dr: Dimitry Omalley MD Ordering Physician: Elaine Cox PA-C Date of Service: 08/19/23 Procedure(s): MR shoulder RT w con Accession Number(s): [id number] cc: Abdirahman Mccord MD; Elaine Cox PA-C [...] in OV> 08/22/23 0959 DD/ 1431 TD/TT: Emotionally Impaired Teacher: PHILL Procedure Note Donotuseinterpreter, Image - 08/22/2023 [place] [address] Magnetic Resonance Report Signed Patient: Tammy Scott AMR#: [id number] 1003 : 1990Acct:[id number] Age/Sex: 33 FADM Date: 08/19/23 Loc: HO.XRAY Attending Dr: Dimitry Omalley MD Ordering Physician: Elaine Cox PA-C Date of Service: 08/19/23 Procedure(s): MR shoulder RT w con Accession Number(s): [id number] cc: Abdirahman Mccord MD; Elaine Cox PA-C [...] acromiale with minimal degenerative change. Dictated By: Fidle Mortensen MD Signed By: <Electronically signed by Fidel Mortensen MD inOV> 08/22/23 0959 DD/ 1431 TD/TT: Emotionally Impaired Teacher: PHILL [facility] External Provider IMG MRI PROCEDURES Final Result * FL ARTHROGRAM SHOULDER RIGHT (08/19/2023 1:25 PM EDT) Anatomical Region Laterality Modality Radiographic Kimberly ging 08/19/2023 1:25 PM EDT Narrative 08/20/2023 8:34 AM EDT [place] [address] Fluoroscopy Report Signed Patient: Tammy Scott MR#: [id number] 1003 : 1990 Acct:[id number] Age/Sex: 33 / F ADM Date: 08/19/23 Loc: HO.XRAY Attending Dr: Dimitry Omalley MD Ordering Physician: Dimitry Omalley MD Date of Service: 08/19/23 Procedure(s): FL arthrogram shoulder RT Accession Number(s): [id number] cc: Abdirahman Mccord MD; Dimitry Omalley MD [...] in OV> 08/20/23 0833 DD/ 1325 TD/TT: Emotionally Impaired Teacher: Procedure Note Donotuseinterpreter, Image - 08/20/2023 [place] [address] Fluoroscopy Report Signed Patient: Tammy Scott AMR#: [id number] 1003 : 1990Acct:[id number] Age/Sex: Date: 08/19/23 Loc: HO.XRAY Attending Dr: Dimitry Omalley MD Ordering Physician: Dimitry Omalley MD Date of Service: 08/19/23 Procedure(s): FL arthrogram shoulder RT Accession Number(s): [id number] cc: Abdirahman Mccord MD; Dimitry Omalley MD [...] in OV> 08/20/23 0833 DD/ 1325 TD/TT: Emotionally Impaired Teacher: [facility] External Provider IMG FLU OROSCOPY PROCEDURES Final Result documented in this encounter Visit Diagnoses Diagnosis Severe obesity (CMS/HCC) Morbid obesity documented in this encounter Additional Health Concerns Assessment Noted Time PHQ-9 Depression Total Score: 10 023 11:07 AM EDT documented as of this encounter Care Teams Nurses' Association Executive Director Relationship Specialty Start Date End Date Abdirahman Mccord MD [address] [place] [address] PCP - General Internal Medicine 12/10/22 Abdirahman Mccord MD [address] [place] [address] Internal Medicine 04/29/21 documented as of this encounter
--- OUTSIDE RECORDS SUMMARY | 2024-12-24 16:18 | XMS_ITS | Encounter Summary ---
Author Organization [employer] Address [address] [facility] 7 [place] [address] Care Team Providers Care Vp Emerging Media Name Role Phone Abdirahman Mccord MD Unavailable [phone] Abdirahman Mccord MD Primary Care Provider [phone] Reason for Visit * Reason Onset Date Comments Appointment Request 09/20/2023 Encounter Details Date Type Department Care Team (Late st Contact Info) Description 09/20/2023 Telephone [facility] MEDICINE [address] [place] [address] Abdirahman Mccord MD [address] [place] [address] Appointment Request Social History Tobacco Use Types Packs/Day Years [...] encounter Miscellaneous Notes * Telephone Encounter - Tenzin Cruz - 09/20/2023 3:35 PM EDT Tc from patient calling to cancel appt for 09/19 and would like a call back to reschedule documented in this encounter Plan of Treatment Not on file documented as of this encounter Visit Diagnoses Not on filedocumented in this encounter Additional Health Concerns Assessment Noted Time PHQ-9 Depression Total Score: 10 023 11:07 AM EDT documented as of this encounter Care Teams Vp Emerging Media Relationship Specialty Start Date End Date Abdirahman Mccord MD [address] [place] [address] PCP - General Internal Medicine 12/10/22 Abdirahman Mccord MD [address] [place] [address] Internal Medicine 04/29/21 documented as of this encounter
--- OUTSIDE RECORDS SUMMARY | 2024-12-24 16:18 | XMS_ITS | Encounter Summary ---
Author Organization [employer] Address [address] [facility] 7 [place] [address] Care Team Providers Care Training And Development Assistant Name Role Phone Abdirahman Mccord MD Unavailable [phone] Abdirahman Mccord MD Primary Care Provider [phone] Reason for Visit * Reason Onset Date Comments Nurse Triage 12/23/2024 Encounter Details Date Type Department Care Team (Late st Contact Info) Description 12/23/2024 Telephone [facility] MEDICINE [address] [place] [address] Abdirahman Mccord MD [address] [place] [address] Nurse Triage Social History Tobacco Use Types Packs/Day Years Used Date Smoking Tobacco: Never Passive Smoke Exposure: Never Smokeless Tobacco: Never Depression Answer Date Recorded Patient Health Questionnaire-9 Score 3 10/08/2024 Patient Health Questionnaire-9 Score 3 10/08/2024 Last PHQ-9: Questionnaire Data Not on file 0 10/08/2024 Housing Stability Answer Date Recorded What is your housing situation today? I have marilynjuan ordoñez 07/22/[address] you [...] encounter Miscellaneous Notes * Telephone Encounter - Chiquita Woodward RN - 12/23/2024 1:47 PM EDT Call returned to Tammy Scott to triage below at [phone]. Reports having right side sore throat pain and neck pain. Patient having pain with swallowing. Also having right ear pain. Onset x 1day. Pt reports having feeling warm. No difficulty breathing. Pt offered WIC today for same day disposition. Pt declines due to having another conflicting appt. Pt agrees to sick onsite tomorrow. Reviewed home care advise, ER precautions and reasons to call back. Protocol Used: Sore Throat (Adult) Protocol-Based Disposition: See in Office or Video Visit Today Future Appointments Date Time Provider Department Center 12/24/2024 2:30 PM Mary Purdy MD [facility] Insurance verified as active per Real Time Eligibility in [facility]. Positive Triage Question: * Earache also present * All higher-acuity triage questions were negative Care Advice Discussed: * Reassurance and Education - Sore Throat * Sore Throat * Soft Diet * Drink Plenty of Liquids * Expected Course * Reasons To Call Back - Sore throat is the main symptom and it lasts longer than 48 hours - You become worse * Telephone Encounter - Ayush Mckeon - 12/23/2024 12:29 PM EDT Symptom: Sore Throat Outcome: Schedule an urgent appointment (within 1 hour) or talk to a nurse or provider soon Reason: Any trouble breathing through the mouth Please contact pt at [phone]. documented in this encounter Plan of Treatment Not on file documented as of this encounter Visit Diagnoses Not on filedocumented in this encounter Additional Health Concerns Assessment Noted Time PHQ-9 Depression Total Score: 3 10/09/19 25 4:11 PM EDT documented as of this encounter Care Teams Training And Development Assistant Relationship Specialty Start Date End Date Abdirahman Mccord MD [address] [place] [address] PCP - General Internal Medicine 12/10/22 Abdirahman Mccord MD [address] [place] [address] Internal Medicine 04/29/21 documented as of this encounter
--- OUTSIDE RECORDS SUMMARY | 2024-12-24 16:18 | XMS_ITS | Encounter Summary ---
Author Organization [employer] Address [address] [facility] 7 [place] [address] Care Team Providers Care Market Relationship Manager Name Role Phone Abdirahman Mccord MD Unavailable [phone] Abdirahman Mccord MD Primary Care Provider [phone] Encounter Details Date Type Department Care Team ([facility] st Contact Info) Description 11/12/2024 Orders Only [facility] MED & PEDS [address] [place], [place] [phone] Abdirahman Mccord MD [address] [place], [place] [phone] Social History Tobacco Use Types Packs/Day Years [...] documented as of this encounter Care Teams Market Relationship Manager Relationship Specialty Start Date End Date Abdirahman Mccord MD [address] [place] [address] PCP - General Internal Medicine 12/10/22 Abdirahman Mccord MD [address] [place] [address] Internal Medicine 04/29/21 documented as of this encounter
--- OUTSIDE RECORDS SUMMARY | 2024-12-24 16:18 | XMS_ITS | Clinical Summary ---
Author Organization [facility] ity Address [address] [place] [address] Care Team Providers Care Agricultural Extension Officer Name Role Phone Unavailable Primary Care Provider [...]
--- OUTSIDE RECORDS SUMMARY | 2024-12-24 16:18 | XMS_ITS | Encounter Summary ---
Author Organization [employer] Address [address] [facility] 7 [place] [address] Care Team Providers Care Investor Relations Coordinator Name Role Phone Abdirahman Mccord MD Unavailable [phone] Abdirahman Mccord MD Primary Care Provider [phone] Reason for Visit * Reason Onset Date Comments ER Follow-up 03/26/2023 Encounter Details Date Type Department Care Team (Late st Contact Info) Description 03/26/2023 Telephone [facility] MEDICINE [address] [place] [address] Abdirahman Mccord MD [address] [place] [address] ER Follow-up Social History Tobacco Use Types Packs/Day Years [...] encounter Miscellaneous Notes * Telephone Encounter - Pilar Montes - 03/26/2023 9:49 AM EST Tc from pt calling to report ED visit on 03/25/2023 at [facility]. Seen for chest pain. Diagnose Anxiety Attack Patient advised will forward to team nurse for follow up. documented in this encounter Plan of Treatment Not on file documented as of this encounter Visit Diagnoses Not on filedocumented in this encounter Additional Health Concerns Assessment Noted Time PHQ-9 Depression Total Score: 10 023 11:07 AM EDT documented as of this encounter Care Teams Investor Relations Coordinator Relationship Specialty Start Date End Date Abdirahman Mccord MD [address] [place] [address] PCP - General Internal Medicine 12/10/22 Abdirahman Mccord MD [address] [place] [address] Internal Medicine 04/29/21 documented as of this encounter
== END 2024-12-24 16:00 | disposition home or self-care (01) ==
LOC: HO.CHCLNP 15:59
PROVIDERS: Visit Provider Family Medicine
DX: J06.0 Acute laryngopharyngitis (principal)
CPT/HCPCS: 87070